=== PATIENT | female | born 1970 | race Caucasian/White ===

== ENCOUNTER → 2021-05-19 11:55 | Outpatient (CLI) | payer OTHER, SELFPAY ==
--- NOTE | ~2021-05-19 | MM_ITS ---
EXAMINATION: MM screening [facility] BI w berenice HISTORY: Screening TECHNIQUE: Craniocaudal and mediolateral oblique 3-D tomosynthesis images were obtained and synthetic 2-D images were generated. CAD analysis was submitted and interpreted. COMPARISON: 12/19/2012 BREAST PARENCHYMAL COMPOSITION: There are scattered areas of fibroglandular density. FINDINGS: There are new clustered calcifications in the lower outer right breast and upper central le ft breast. There are no suspicious masses or architectural distortion. IMPRESSION: 1. Developing clustered bilateral breast calcifications. 2. Magnification views are recommended. BI-RADS Category 0: Incomplete: Needs additional imaging evaluation. Reviewed, dictated and finalized at location A.
== END ==
PROVIDERS: Visit Provider Nurse Practitioner Family
DX: Z12.31 Encounter for screening mammogram for malignant neoplasm of breast (principal); R92.8 Other abnormal and inconclusive findings on diagnostic imaging of breast
CPT/HCPCS: 77063; 77067

== ENCOUNTER → 2021-06-03 14:22 | Outpatient (CLI) | payer OTHER, SELFPAY ==
--- NOTE | ~2021-06-03 | MMUS_ITS ---
EXAMINATION: MM diagnostic mammo BI, US breast BI limited HISTORY: Developing bilateral clustered microcalcifications of the breasts reported on May 19, 2021 screening mammogram examination: Lower outer right breast in upper central left breast TECHNIQUE: ML views of each breast. Bilateral magnification views. CAD analysis was submitted and int erpreted. High resolution upper outer and lower-outer quadrant bilateral breast ultrasound was perfor med. COMPARISON: May 19, 2021 and December 19, 2012 bilateral screening mammogram examinations FINDINGS: MAMMOGRAPHIC FINDINGS: Multiple sites of microcalcifications are identified bilaterally. These are an occasional calcified m icrohematoma and some grouped microcalcifications with features suggestive of fibroadenoma. There is however one cluster of grouped microcalcifications in the upper outer right breast approxima tely 7.2 cm from the nipple near junction of the anterior and middle thirds of the breast, which is i ndeterminate, with granular consistency; consider stereotactic biopsy. ULTRASOUND: No suspicious masses or shadowing of either breast are detected. Right breast: No significant sonographic abnormality is identified; no suspicious mass or shadowing Left breast: 2:00 1 cm from nipple: Parallel circumscribed 2.6 x 3.8 x 4 mm circumscribed hypoechoic lesion withou t internal vascularity or posterior shadowing 4:00 2 cm from nipple: Parallel circumscribed 1.5 x 5.2 x 4.1 mm parallel circumscribed sonolucency, likely a benign cyst IMPRESSION: 1. Indeterminate granular appearing grouped microcalcifications in the upper outer right breast 2. Stereotactic biopsy is recommended. BI-RADS category 4, suspicious findings. Dr. Felipe telephoned the report and started biopsy recommendation of the right breast on 06/03/2021 at 1551 hours to Doris Renteria. Reviewed, dictated and finalized at location A. IMPRESSION: 1. Indeterminate granular appearing grouped microcalcifications in the upper ou ter right breast 2. Stereotactic biopsy is recommended. BI-RADS category 4, suspicious findings. Dr. Felipe telephoned the report and started biopsy recommendation of the right b reast on 06/03/2021 at 1551 hours to Doris Renteria.
== END ==
PROVIDERS: PCP Nurse Practitioner Family; Visit Provider Nurse Practitioner Family
DX: R92.8 Other abnormal and inconclusive findings on diagnostic imaging of breast (principal)
CPT/HCPCS: 76642; 77066

== ENCOUNTER 2021-07-12 11:01 | Outpatient (CLI) | payer OTHER, SELFPAY ==
--- NOTE | ~2021-07-12 | MM_ITS ---
EXAMINATION: MM stereotactic bx RT, MM post biopsy diagnostic RT, MM stereotactic specimen RT, Specim en Radiograph, Tissue Marker Clip Placement, Unilateral Mammogram DATE: 07/12/2021 12:50 (accession [id number]), 07/12/2021 12:53 (accession [id number]), 07/12 12:52 (accession [id number]) INDICATION: Abnormal mammogram: Indeterminate grouped microcalcifications, upper outer right breast. TECHNIQUE AND FINDINGS: The risks and potential benefits of the procedure were discussed with the patient and written informe d consent was obtained. Timeout procedure was performed. The patient was placed in the prone position on the dedicated stereotactic table with the right breast in lateral medial compression, and the are a of interest was localized and targeted utilizing digital imaging with stereotaxis. After sterile preparation of the skin, 1% lidocaine was utilized for local anesthesia at the skin pun cture site and 1% lidocaine with epinephrine was utilized for deeper local anesthesia/is about the bi opsy site. A 9G Table8 vacuum assisted biopsy needle was advanced to the level of the calcification o f interest from a lateral approach utilizing stereotactic guidance and a total of 24 tissue core biop sies were obtained. A specimen radiograph demonstrates that the calcifications of interest are likely included within the tissue cores. A tissue marker clip was then placed at the biopsy site. A digital mammographic expo sure confirmed the successful deployment of the biopsy marker. The needle was removed and hemostasis was achieved. A sterile bandage was applied. The patient tolerated the procedure well and there is no evidence of significant immediate complication. The patient was given verbal as well as written postprocedural instructions prior to discharge from the department. Tissue cores were submitted to s [facility] pathology for histologic analysis. A 2-view right unilateral digital mammogram was obtained post procedure, demonstrating the tissue mar ker clip in expected position. IMPRESSION: 1. Stereotactic biopsy of indeterminate upper outer quadrant right, followed by tissue marker clip p lacement. Please refer to pathology report for histologic analysis. Reviewed, dictated and finalized at Location [facility]. Reviewed, dictated and finalized at location A. IMPRESSION: 1. Stereotactic biopsy of indeterminate upper outer quadrant right, followed b y tissue marker clip placement. Please refer to pathology report for histologi c analysis. IMPRESSION: 1. Stereotactic biopsy of indeterminate upper outer quadrant right, followed b y tissue marker clip placement. Please refer to pathology report for histologi c analysis.
== END 2021-07-12 11:02 | disposition home or self-care (01) ==
PROVIDERS: PCP Nurse Practitioner Family; Visit Provider Nurse Practitioner Family
DX: R92.8 Other abnormal and inconclusive findings on diagnostic imaging of breast (principal)
CPT/HCPCS: 19081; 77065; 88305; A4648

== ENCOUNTER 2023-11-02 14:03 | Outpatient (CLI) | payer BC, SELFPAY ==
--- NOTE | ~2023-11-02 | XR_ITS ---
XR foot RT min 3V Ordering provider: Rory Jennings History: . RIGHT FOOT PAIN . Comparison: The FINDINGS: BONES: No acute fracture or dislocation. JOINT SPACES: Narrowing of the proximal and distal interphalangeal joints. No tarsal coalition. SOFT TISSUES: Normal. IMPRESSION: No acute osseous abnormality of the right foot. 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
== END 2023-11-02 14:04 | disposition home or self-care (01) ==
LOC: MICIMG 14:07
DX: M19.071 Primary osteoarthritis, right ankle and foot (principal)
CPT/HCPCS: 73630

== ENCOUNTER 2024-12-09 14:01 | Outpatient (CLI) | payer BC, SELFPAY ==
--- NOTE | ~2024-12-09 | MM_ITS ---
EXAMINATION: MM screening [facility] BI w berenice HISTORY: Screening TECHNIQUE: Craniocaudal and mediolateral oblique 3-D tomosynthesis images were obtained and synthetic 2-D images were generated. CAD analysis was submitted and interpreted. COMPARISON: Comparison to multiple prior studies sequentially, with oldest reviewed study dated 05/19/2021 BREAST PARENCHYMAL COMPOSITION: Not dense: There are scattered areas of fibroglandular density. FINDINGS: There is no evidence of suspicious mass, calcification, or architectural distortion to suggest malignancy in either breast. There has been no suspicious interval change. IMPRESSION: 1. No mammographic evidence of malignancy. 2. Recommend routine screening mammography in one year. BI-RADS Category 1: Negative Reviewed, dictated and finalized at location B.
== END 2024-12-09 14:02 | disposition home or self-care (01) ==
LOC: MICIMG 14:02
PROVIDERS: PCP Obstetrics & Gynecology; Visit Provider Nurse Practitioner Family
DX: Z12.31 Encounter for screening mammogram for malignant neoplasm of breast (principal)
CPT/HCPCS: 77063; 77067